=== PATIENT | male | born 1980 | race Caucasian/White ===

== ENCOUNTER 2018-08-28 00:58 | Emergency (ER) | payer OTHER ==
[2018-08-28 01:02] VITALS: RESP 16; TEMP 97.8
--- NOTE | 2018-08-28 01:10 | ED ---
Chest Pain HPI - General Chief Complaint: Chest Pain Stated Complaint: Chest Pain Time Seen by Provider: 08/28/18 01:09 Source: patient Mode of arrival: ambulatory Limitations: no limitations - History of Present Illness Initial Comments: Timmy is a 38-year-old male who presents to the emergency department today for evaluation of chest pain. Patient reports he has been in his usual state of health recently though his 4-year-old daughter has had cold-like symptoms for 3 weeks duration. Patient reports that upon going to bed tonight laying down he felt some sharp left-sided chest pain. Patient reports that the pain felt somewhat better when he sat up but was never resolved completely. He developed this pain for a number of hours before deciding to come to the emergency department for evaluation. Patient has no cardiac history no history of hypertension, lipidemia, diabetes or early cardiac disease. Patient is a smoker but denies any recreational drug use including any stimulants or amphetamines. Patient denies any associated diaphoresis, lightheadedness or shortness of breath. He's never experienced pain like this in the past. - Related Data Previous Rx's Medication Instructions Recorded Ibuprofen [Motrin] 800 mg PO TID #30 tab 08/28/18 Allergies Allergy/AdvReac Type Severity Reaction Status Date / Time No Known Allergies Allergy Verified 08/28/18 01:02 Review of Systems ROS Statement: Those systems with pertinent positive or pertinent negative responses have been documented in the HPI. ROS Other: All systems not noted in ROS Statement are negative. EKG Findings - EKG Comments: EKG Findings:: EKG obtained at 1:08 AM, rate is 96 rhythm is sinus there is normal axis there are normal intervals, KS 136, QRS 12, QTC 419. There are no acute ST elevations or depressions there is no evidence of acute ischemia or infarction. Past Medical History Past Medical History: No Reported History History of Any Multi-Drug Resistant Organisms: None Reported Additional Past Surgical History / Comment(s): right eye surgery Past Psychological History: No Psychological Hx Reported Smoking Status: Current every day smoker Past Alcohol Use History: None Reported Past Drug Use History: None Reported General Exam - General Exam Comments Initial Comments: GENERAL: Patient is well-developed and well-nourished. Patient is nontoxic and well- hydrated and is in no distress. HENT: Normocephalic, Atraumatic. EYES: PERRL PULMONARY: Unlabored respirations. Good breath sounds bilaterally. No audible rales rhonchi or wheezing was noted. CARDIOVASCULAR: There is a regular rate and rhythm without any murmurs gallops or rubs. Extremities warm and well perfused No JVD No pedal edema ABDOMEN: Soft and nontender with normal bowel sounds. No hepatosplenomegaly SKIN: Skin is clear with no lesions or rashes and otherwise unremarkable. NEUROLOGIC: Patient is alert and oriented x3. Cranial nerves II through XII are grossly intact. Motor and sensory are also intact. Normal speech, volume and content. Symmetrical smile. MUSCULOSKELETAL: Normal extremities with adequate strength and full range of motion. No lower extremity swelling or edema. No calf tenderness. LYMPHATICS: No significant lymphadenopathy is noted PSYCHIATRIC: Normal psychiatric evaluation. Limitations: no limitations Limitations: no limitations Course Vital Signs 08/28/18 08/28/18 08/28/18 01:00 02:30 03:37 Temperature 97.8 F 97.8 F Pulse Rate 113 H 90 74 Respiratory 16 16 16 Rate Blood Pressure 139/96 164/92 140/90 O2 Sat by Pulse 99 98 98 Oximetry - Reevaluation(s) Reevaluation #1: She was reevaluated reports significant improvement in his discomfort after aspirin and Toradol 08/28/18 03:31 Chest Pain [facility] Patient was seen and evaluated history was obtained from patient Patient with stabbing left-sided chest pain Heart score 1 risk factors including smoking Cardiac workup was ordered EKG is nonischemic there is no diffuse ST elevation or significant T-wave abnormality suggestive of acute pericarditis Patient treated with aspirin and Toradol Patient was reevaluated after medications reports significant improvement in his discomfort he is resting comfortably playing on his cell phone Chest x-ray no acute findings Labs and no significant abnormalities troponin is negative Chest x-ray EKG and lab results were discussed with the patient. At this time the patient's more comfortable. Discussed with the patient the possibility of acute pericarditis though he had no ST changes he did have left-sided pain that was relieved by Toradol. Also discussed the possibility of musculoskeletal discomfort. I will discharge patient home on Motrin. Strict return parameters were discussed. All questions pertaining to care were answered best my ability patient was discharged home in stable condition. Disposition Clinical Impression: Atypical chest pain Disposition: HOME SELF-CARE Condition: Stable Instructions (If sedation given, give patient instructions): Chest Pain (ED), Acute Pericarditis (ED) Prescriptions: Ibuprofen [Motrin] 800 mg PO TID #30 tab Is patient prescribed a controlled substance at d/c from ED?: No Referrals: Fidencio Clarke III, MD [Primary Care Provider] - 1-2 days
[2018-08-28] MEDS ORDERED: SODIUM CHLORIDE 0.9% 1,000 ML IV STA (01:39)
[2018-08-28] MEDS ORDERED: KETOROLAC 30 MG/ML 1 ML VIAL IVP STA (01:39)
[2018-08-28] MEDS ORDERED: ASPIRIN 81 MG PO STA (01:39)
[2018-08-28 02:18] LABS: Basophils # (A) 0.1 k/uL (0-0.2); Basophils % (A) 1 %; Eosinophils # (A) 0.3 k/uL (0-0.7); Eosinophils % (A) 4 %; HCT 44.7 % (39.0-53.0); Lymphocytes # (A) 2.2 k/uL (1.0-4.8); Lymphocytes % (A) 28 %; MCH 29.4 pg (25.0-35.0); MCHC 33.7 g/dL (31.0-37.0); MCV 87.3 fL (80.0-100.0); Mean Platelet Volume 6.9; Monocytes # (A) 0.7 k/uL (0-1.0); Monocytes % (A) 9 %; Neutrophils # (A) 4.5 k/uL (1.3-7.7); Neutrophils % (A) 57 %; Platelet Count 231 k/uL (150-450); RBC 5.12 m/uL (4.30-5.90); RDW 13.1 % (11.5-15.5); WBC 7.9 k/uL (3.8-10.6)
[2018-08-28 02:31] LABS: ALT 37 U/L (21-72); AST 21 U/L (17-59); Alkaline Phosphatase 80 U/L (38-126); Anion Gap 8 mmol/L; Blood Urea Nitrogen 10 mg/dL (9-20); Calcium 9.3 mg/dL (8.4-10.2); Carbon Dioxide 25 mmol/L (22-30); Chloride 109 mmol/L (98-107); Glucose 109 mg/dL (74-99); Lipase 30 U/L (23-300); Magnesium 2.3 mg/dL (1.6-2.3); Potassium 4.2 mmol/L (3.5-5.1); Sodium 142 mmol/L (137-145); Total Bilirubin 0.4 mg/dL (0.2-1.3); Total Protein 6.7 g/dL (6.3-8.2)
[2018-08-28 02:34] LABS: INR 0.9 (<1.2); Partial Thromboplastin Time 25.4 sec (22.0-30.0); Prothrombin Time 9.9 sec (9.0-12.0)
[2018-08-28 02:40] LABS: Amylase <30 U/L (30-110)
--- NOTE | 2018-08-28 02:57 | XR ---
EXAM: XR Chest, 2 Views CLINICAL HISTORY: Chest Pain TECHNIQUE: Frontal and lateral views of the chest. COMPARISON: No relevant prior studies available. FINDINGS: Lungs: Unremarkable. No consolidation. Pleural space: Unremarkable. No pneumothorax. Heart: Unremarkable. No cardiomegaly. Mediastinum: Unremarkable. Bones/joints: Unremarkable. IMPRESSION: Normal chest x-rays.
[2018-08-28 03:08] LABS: Creatine Kinase 94 U/L (55-170)
[2018-08-28 03:21] LABS: Creatine Kinase MB 0.3 ng/mL (0.0-2.4); Troponin I <0.012 ng/mL (0.000-0.034)
[2018-08-28 03:38] VITALS: BP 140/90; PULSE 74
== END 2018-08-28 04:10 | disposition home or self-care (01) ==
LOC: EC 00:58
DX: R07.89 Other chest pain (principal); F17.200 Nicotine dependence, unspecified, uncomplicated
CPT/HCPCS: 99285; 96374; 36415; 93005; 83880; 80053; 82150; 82550; 82553; 83690; 83735; 84484; 85025; 85610; 85730; 71046; J1885